=== PATIENT | female | born 1945 | race Caucasian/White ===

== ENCOUNTER → 2017-04-03 | Outpatient (CLI) | payer MEDICARE, OTHER ==
--- NOTE | 2017-04-03 09:57 | Diagnostic Imaging Report ---
PROCEDURE:X-RAY PARANASAL SINUSES, COMPLETE COMPARISON:None. INDICATIONS:CHRONIC SINUSITIS FINDINGS: The paranasal sinuses are clear. No fluid levels are identified. No expansile or destructive osseous lesions are seen. No evidence of fracture. CONCLUSION: No radiographic evidence of acute sinusitis. Dictated by: Isak Oro M.D. on 04/03/2017 at 10:05 Electronically approved by: Isak Oro M.D. on 04/03/2017 at 10:05
== END ==
LOC: RAD 09:06
PROVIDERS: ATTEND Family Medicine
DX: J32.9 Chronic sinusitis, unspecified (principal)
CPT/HCPCS: 70220

== ENCOUNTER 2017-05-22 06:17 | Emergency (ER) | payer MEDICARE, OTHER ==
[~2017-05-22] VITALS: Ht 152.4 cm; Wt 58.5 kg
--- OUTSIDE RECORDS SUMMARY | 2017-05-22 06:20 | XMS REPORT ---
[facility] Address Unknown Phone Unavailable Care Team Providers Care Online Media Buyer Name Role Phone LADONNA GUERRERO Unavailable Unavailable Problems This patient has no known problems. Allergies, Adverse Reactions, Alerts This patient has no known allergies or adverse reactions. Medications This patient has no known medications. Results Test Description Test Time Test Comments Text Results Atomic Results Result Comments SINUSES (PARANASAL)MIN 3VIEWS [place] [id number] Patient Name: MAGAN BRODY MR #: [id number] : 1945 Age/Sex: 71/F Req #: [id number] Adm Physician: Ordered by: LADONNA GUERRERO MD Report #: [id number] Location: [facility] Room/Bed: Procedure: [id number] DX/SINUSES (PARANASAL)MIN 3VIEWS Exam Date: 04/03/17 Exam Time: 0935 REPORT STATUS: Signed PROCEDURE : X-RAY PARANASAL SINUSES, COMPLETE COMPARISON: None. INDICATIONS: CHRONIC SINUSITIS FINDINGS: The paranasal sinuses are clear. No fluid levels are identified. No expansile or destructive osseous lesions are seen. No evidence of fracture. CONCLUSION: No radiographic evidence of acute sinusitis. Dictated by: Pedro Bee M.D. on 04/03/2017 at 10:05 Electronically approved by: Pedro Bee M.D. on at 10:05 Dictated By: PEDRO BEE MD 100 Transcribed By: JOSE on 04/03/17 100 COPY TO: LADONNA GUERRERO MD
[2017-05-22 08:10] VITALS: BP 118/68
== END 2017-05-22 07:50 | disposition home or self-care (01) ==
LOC: FSED 06:17
DX: H10.022 Other mucopurulent conjunctivitis, left eye (principal); S05.02XA Injury of conjunctiva and corneal abrasion without foreign body, left eye, initial encounter; T85.398A Other mechanical complication of other ocular prosthetic devices, implants and grafts, initial encounter
CPT/HCPCS: 99283

== ENCOUNTER 2017-07-16 22:42 | Emergency (ER) | payer MEDICARE, OTHER ==
[~2017-07-16] VITALS: Ht 152.4 cm; Wt 55.8 kg
--- OUTSIDE RECORDS SUMMARY | 2017-07-16 22:44 | XMS REPORT | Continuity of Care Document ---
Author Author [facility] Organization [facility] Address [address] [facility] [place] [address] Phone Unavailable Care Team Providers Care Tech Ed/Woodshop Teacher Name Role Phone LADONNA GUERRERO MD PCP Insurance Providers Guarantor Beatrice Melendez Address [address] [place] [address] Email NA Payer Medicare A & B Policy Number [id number] Subscriber's Name MelendezKenroyBeatrice Yakelin Relationship 18 Self / Same As Patient Effective Date 10 Payer Miscellaneous Indemnity Policy Number [id number] Subscriber's Name NoraBeatrice S Relationship 18 Self / Same As Patient Advance Directives Directive Response Recorded Date/Time Does the patient have an advance directive? No 12/11/11 10:54am If yes, is advance directive on file with [facility]? No 12/11/11 10:54am If not on file with [facility] will patient provide a copy? No 12/11/11 10:54am Do you have a Directive to Physician? No 05/22/17 7:34am Do you have a Medical Power of Facing [place]? No 05/22/17 7:34am Do you have an out of hospital Do Not Resuscitate Order? No 05/22/17 7:34am Do you have any special needs we should be aware of? No 05/22/17 7:34am Do you have a support person here with you today? No 05/22/17 7:34am Did patient receive Notice of Privacy Practices? Yes 05/22/17 7:34am Did patient receive patient rights and responsibilities? Yes 05/22/17 7:34am Problems No problem information available. Medications No medication information available. Social History No social history information available. Hospital Discharge Instructions No hospital discharge instruction information available. Plan of Care Discharge Date 05/22/17 7:50am Disposition HOME, SELF-CARE Condition at Discharge Stable Instructions/Education Provided Corneal Abrasion Prescriptions See Medication Section Additional Instructions/Education Follow-up with Ophthalmology, if symptoms worsen or persist. Functional Status No functional status information available. Allergies, Adverse Reactions, Alerts Allergen Type Severity Reaction Status Last Updated Codeine Allergy Severe hallucinations Active 05/22/17 Immunizations No immunization information available. Vital Signs Acute Vital Signs Vital Response Date/Time Pulse Pulse Rate (adult) 64 bpm (60 - 90) 05/22/2017 8:10am Respiratory Rate 16 bpm (12 - 24) 05/22/2017 8:10am Blood Pressure 118/68 mm Hg 05/22/2017 8:10am Height 5 ft 0 in 05/22/2017 6:18am Weight 129 lb 05/22/2017 6:18am Body Mass Index 25.2 kg/m^2 05/22/2017 6:18am Results No relevant diagnostic test, laboratory data and/or discharge summary information available. Procedures No procedure information available. Encounters Encounter Location Arrival/Admit Date Discharge/Depart Date Attending Provider Departed Emergency Room [facility] 05/22/17 6:17am 7:50am GLEN BYRNE MD Registered Clinic [facility] 04/03/17 9:06am LADONNA GUERRERO MD
[2017-07-17] MEDS: ONDANSETRON HCL INJ 2 MG/ML VIAL IV STA (00:30)
[2017-07-17] MEDS: SODIUM CHLORIDE 0.9% 1000ML 1,000 ML IV SCH ×2 (00:30→02:00)
[2017-07-17 03:05] VITALS: BP 109/80
== END 2017-07-17 03:12 | disposition home or self-care (01) ==
LOC: FSED 22:42
DX: K52.9 Noninfective gastroenteritis and colitis, unspecified (principal); E86.0 Dehydration; R00.1 Bradycardia, unspecified
CPT/HCPCS: 80053; 81003; 82553; 84484; 85025; 99283; J2405

== ENCOUNTER → 2018-09-09 | Outpatient (CLI) | payer MEDICARE, OTHER ==
--- NOTE | 2018-09-09 13:03 | Diagnostic Imaging Report ---
EXAMINATION: PA and lateral views of the chest. COMPARISON: None CLINICAL HISTORY: Shortness of breath DISCUSSION: Lines/tubes: None. Lungs: The lungs are well inflated and clear. There is no evidence of pneumonia or pulmonary edema. Calcified granuloma right upper lobe. Pleura: There is no pleural effusion or pneumothorax. Heart and mediastinum: The cardiomediastinal silhouette is normal. Bones and soft tissues: No acute bony abnormalities. IMPRESSION: No acute cardiopulmonary abnormalities. Signed by: Dr. Chino Arnold M.D. on 09/09/2018 1:00 PM
== END ==
LOC: RAD 12:29
DX: R06.02 Shortness of breath (principal)
CPT/HCPCS: 71046

== ENCOUNTER 2019-02-17 08:59 | Outpatient (RCR) | payer MEDICARE, OTHER | END 2019-02-21 | LOC: PT 08:59 | PROVIDERS: ATTEND Specialist | DX: S46.091A Other injury of muscle(s) and tendon(s) of the rotator cuff of right shoulder, initial encounter (principal); M25.511 Pain in right shoulder; M25.611 Stiffness of right shoulder, not elsewhere classified | CPT/HCPCS: 97139 ==